=== PATIENT | female | born 1955 | race African-American/Black ===

== ENCOUNTER 2023-03-26 10:31 | Outpatient (CLI) | payer OTHER, MEDICAID ==
[2023-03-26 11:52] LABS: #Eosinphils 0.1 10x3/uL (0.0-0.5); #Monocytes 0.2 10x3/uL (0.0-1.1); #Neutrophils 2.1 10x3/uL (1.5-8.4); %Basophils 0.7 % (0.0-2.0); %Eosinophils 2.7 % (0.0-6.0); %Lymphocytes 44.9 % (18.0-47.0); %Monocytes 5.2 % (0.0-10.0); %Neutrophils 46.3 % (40.0-75.0); Hematocrit 42.6 % (34.9-44.5); Hemoglobin 13.9 g/dL (12.0-15.5); Mean Corpuscular HGB CONC 32.6 g/dL (32.0-36.0); Mean Corpuscular Hemoglobin 27.7 pg (27.0-33.0); Mean Platelet Volume 10.4 fl (7.4-10.4); Platelet Count 299 10x3/uL (150-450); RBC Distribution Width 12.7 % (11.5-14.5); Red Blood Cell (RBC) Count 5.01 10x6/uL (3.90-5.03); White Blood Cell (WBC) Count 4.5 10x3/uL (3.5-10.5)
[2023-03-26 11:59] LABS: Anion Gap 14 mmol/L (10-20); BUN (Urea Nitrogen) 8 mg/dL (9.8-20.1); Calc. Creatinine Clearance 0 mL/min (70-130); Calcium 9.5 mg/dL (7.8-10.44); Carbon Dioxide 25 mmol/L (23-31); Chloride 105 mmol/L (98-107); Estimated GFR 77; Glucose 142 mg/dL (80-115); Potassium 3.9 mmol/L (3.5-5.1); Sodium 140 mmol/L (136-145)
[2023-03-26 12:14] LABS: Prothrombin Time 10.6 sec (9.5-12.1)
== END 2023-03-26 10:32 | disposition home or self-care (01) ==
LOC: LABBT 10:31
PROVIDERS: ATTEND Orthopaedic Surgery
DX: Z01.818 Encounter for other preprocedural examination (principal); M17.11 Unilateral primary osteoarthritis, right knee
CPT/HCPCS: 80048; 85025; 85610; 87081; 93005; 93010

== ENCOUNTER 2023-03-31 06:36 | Observation (INO) | payer OTHER, MEDICAID ==
[2023-03-26 11:32] VITALS: BMI 28.6
[2023-03-31] MEDS ORDERED: Bupivacaine PF 0.5% 30 ML VIAL ONE ×2 (07:28→08:46)
[2023-03-31] MEDS ORDERED: Midazolam HCl 2 mg/2 ml Vial ONE (07:28)
[2023-03-31] MEDS ORDERED: EPINEPHrine 1 MG/ML AMP ONE (07:28)
[2023-03-31] MEDS ORDERED: fentaNYL 50 mcg/mL 1 mL Vial ONE ×3 (07:28→13:40)
[2023-03-31] MEDS ORDERED: Tranexamic Acid 1,000 MG/10 ML VIAL ONE (07:29)
[2023-03-31] MEDS ORDERED: Vancomycin (BATCH) 1.5 GM/300 ML BAG ONE (07:30)
[2023-03-31] MEDS ORDERED: Sodium Chloride 0.9% 100 ML ONE ×3 (07:54→13:35)
[2023-03-31] MEDS ORDERED: Propofol 1,000 MG/100 ML VIAL IV ONE (08:49)
[2023-03-31] MEDS ORDERED: CEFAZOLIN 2 GM VIAL ONE ×2 (08:51→13:35)
[2023-03-31] MEDS ORDERED: diphenhydrAMINE 25 MG CAP PO PRN (08:52)
[2023-03-31] MEDS ORDERED: Ondansetron PF 4 MG/2 ML Vial IVP PRN ×2 (08:52→10:00)
[2023-03-31] MEDS ORDERED: Zolpidem Tartrate 5 MG TAB PO PRN ×3 (08:52→10:00)
[2023-03-31] MEDS ORDERED: fentaNYL 50 mcg/mL 1 mL Vial SLOW IVP PRN ×2 (08:52→09:52)
[2023-03-31] MEDS ORDERED: Promethazine HCl 25 MG/ML VIAL IM PRN ×2 (08:52→10:00)
[2023-03-31] MEDS ORDERED: Acetaminophen 325 MG TAB PO PRN (08:52)
[2023-03-31] MEDS ORDERED: HYDROcodone/Acetaminophen 10/325 mg Tablet PO PRN ×3 (08:52→10:00)
[2023-03-31] MEDS ORDERED: Non-Formulary Item 1 EACH (Zolpidem Tartrate [Zolpidem Tartrate] 10 MG Tablet) PO PRN (08:53)
[2023-03-31] MEDS ORDERED: Aspirin 81 mg Enteric Coated Tablet PO SCH (09:00)
[2023-03-31] MEDS ORDERED: Non-Formulary Item 1 EACH (Losartan Potassium [Losartan Potassium] 100 MG Tablet) PO SCH (09:00)
[2023-03-31] MEDS ORDERED: Non-Formulary Item 1 EACH (Fluticasone Propionate [Flonase Allergy Relief] 9.9 ML Bottle) EA NARE SCH (09:00)
[2023-03-31] MEDS ORDERED: Cetirizine HCl 10 MG TAB PO SCH (09:00)
[2023-03-31] MEDS ORDERED: Ropivacaine 0.2% 550 ML 550 ML NERVE BLCK SCH (10:00)
[2023-03-31] MEDS ORDERED: traMADol HCl 50 MG TAB PO PRN ×2 (10:00)
[2023-03-31] MEDS: CEFAZOLIN 2 GM in Sodium Chloride 0.9% 100 ML IVPB SCH ×2 (13:54→21:24)
[2023-03-31] MEDS: Amlodipine 10 MG TAB PO SCH (17:40)
[2023-03-31] MEDS: busPIRone HCl 10 MG TAB PO SCH ×2 (17:40→20:35)
[2023-03-31] MEDS: Ferrous Gluconate 324 MG TAB PO SCH ×2 (17:40→20:36)
[2023-03-31] MEDS: Aspirin 81 mg Enteric Coated Tablet PO SCH ×2 (17:40→20:35)
[2023-03-31] MEDS: Sodium Chloride 0.9% 1,000 ML IV SCH ×2 (17:41→19:17)
[2023-03-31] MEDS: Multivitamin W/ Minerals 1 TAB PO SCH (17:41)
[2023-03-31] MEDS: Metoprolol Tartrate 50 MG TAB PO SCH (17:41)
[2023-03-31] MEDS: Senokot S 8.6-50 MG TAB PO SCH ×2 (17:41→20:36)
[2023-03-31] MEDS: Levothyroxine 150 MCG TAB PO SCH (17:41)
[2023-03-31] MEDS ORDERED: Ezetimibe 10 MG TAB PO SCH (21:00)
[2023-03-31] MEDS: HYDROcodone/Acetaminophen 10/325 mg Tablet PO PRN (21:21)
[2023-04-01] MEDS: Sodium Chloride 0.9% 1,000 ML IV SCH (04:24)
[2023-04-01] MEDS: HYDROcodone/Acetaminophen 10/325 mg Tablet PO PRN ×2 (04:56→09:31)
[2023-04-01 06:03] LABS: Hematocrit 33.8 % (36.0-47.0); Hemoglobin 10.9 g/dL (12.0-16.0); Mean Corpuscular HGB CONC 32.2 g/dL (32.0-36.0); Mean Corpuscular Hemoglobin 28.4 pg (27.0-31.0); Mean Platelet Volume 11.2 fL (7.4-10.4); Platelet Count 217 10x3/uL (130-400); RBC Distribution Width 12.9 % (11.5-14.5); Red Blood Cell (RBC) Count 3.84 mill/uL (4.20-5.40)
[2023-04-01] MEDS ORDERED: Losartan 25 MG TAB PO SCH (09:00)
[2023-04-01] MEDS ORDERED: Fluticasone Propionate Nasal Spray 16 gm Bottle NASAL SCH (09:00)
[2023-04-01] MEDS ORDERED: Loratadine 10 MG TAB PO SCH (09:00)
[2023-04-01] MEDS: busPIRone HCl 10 MG TAB PO SCH (09:32)
[2023-04-01] MEDS: Levothyroxine 150 MCG TAB PO SCH (09:32)
[2023-04-01] MEDS: Multivitamin W/ Minerals 1 TAB PO SCH (09:33)
[2023-04-01] MEDS: Aspirin 81 mg Enteric Coated Tablet PO SCH (09:33)
[2023-04-01] MEDS: Senokot S 8.6-50 MG TAB PO SCH (09:33)
[2023-04-01] MEDS: Ferrous Gluconate 324 MG TAB PO SCH (09:33)
[2023-04-01] MEDS: Amlodipine 10 MG TAB PO SCH (09:37)
[2023-04-01] MEDS: Metoprolol Tartrate 50 MG TAB PO SCH (09:37)
[2023-04-01 12:00] VITALS: BP 113/67; TEMP 98.6
[2023-04-03] MEDS ORDERED: FLU VACC QS2023(65UP)/MF59C/PF 60 MCG/0.5 ML SYRINGE IM ONE (09:00)
== END 2023-04-01 12:35 | disposition home or self-care (01) ==
LOC: SDC 06:36 → SURG A 15:38
PROVIDERS: ADMIT Orthopaedic Surgery; ATTEND Orthopaedic Surgery
PROC: 0SRC0JZ Replacement of Right Knee Joint with Synthetic Substitute, Open Approach (ICD-10-PCS; principal; 2023-03-31)
DX: M17.11 Unilateral primary osteoarthritis, right knee (principal); I10 Essential (primary) hypertension; I25.10 Atherosclerotic heart disease of native coronary artery without angina pectoris; Z90.89 Acquired absence of other organs; Z96.652 Presence of left artificial knee joint; Z88.8 Allergy status to other drugs, medicaments and biological substances; Z88.6 Allergy status to analgesic agent
CPT/HCPCS: 27447; 73560; 85027; 97110 ×2; 97116; 97530 ×2; A4306; C1776; J3010; J3370; 36415; J0171; J2250; J2405; J2704; J2795; J3490; S0020